=== PATIENT | female | born 1980 | race Caucasian/White ===

== ENCOUNTER 2021-10-09 10:52 | Outpatient (CLI) | payer OTHER ==
[~2021-10-09] VITALS: Ht 172.7 cm; Wt 131.8 kg
[2021-10-09] VITALS (8 sets, daily range): BP systolic 121–138; BP diastolic 66–80; PULSE 56–79; TEMP 98.5
== END 2021-10-09 13:59 ==
LOC: EUO 10:52
DX: J02.9 Acute pharyngitis, unspecified (principal)
CPT/HCPCS: M0245